=== PATIENT | female | born 1975 | race Two or more races ===

== ENCOUNTER 2018-02-25 12:26 | Emergency (ER) | payer BC ==
[2018-02-25 13:37] VITALS: BP 129/86
[2018-02-25] MEDS ORDERED: traMADol TAB* 50 MG PO ONE (14:17)
--- NOTE | 2018-02-25 14:21 | RAD ---
HISTORY: Left foot pain, injury COMPARISONS: None VIEWS: 3, Frontal, lateral, and oblique views of the left foot FINDINGS: BONE DENSITY: Normal. BONES: There is an oblique nondisplaced fracture of the proximal phalanx of the third digit. JOINTS: There is no arthropathy. ALIGNMENT: There is no dislocation. SOFT TISSUES: Unremarkable. OTHER FINDINGS: None. IMPRESSION: OBLIQUE NONDISPLACED FRACTURE OF THE PROXIMAL PHALANX OF THE THIRD DIGIT.
--- NOTE | 2018-02-25 15:38 | UC ---
Lower Extremity/Ankle HPI - HPI Summary HPI Summary: Patient is a 42-year-old female presenting to the with chief complaint of left middle toe pain and ecchymosis after jamming the toe earlier this morning. She endorses difficulty ambulating well. Denies any numbness or tingling. Denies any temperature changes to the area. Denies any other injuries. She has not taken any ibuprofen or Tylenol [employer]. - History of Current Complaint Chief Complaint: UCLowerExtremity Stated Complaint: FOOT INJURY Time Seen by Provider: 02/25/18 13:49 Hx Obtained From: Patient Hx Last Menstrual Period: states does not get period due to bc pill ?: No Onset/Duration: Sudden Onset Severity Initially: Mild Severity Currently: Mild Pain Intensity: 0 Pain Scale Used: 0-10 Numeric Aggravating Factor(s): Standing, Ambulation Alleviating Factor(s): Rest Able to Bear Weight: No - Risk Factors Gout Risk Factors: Negative DVT Risk Factors: Negative Septic Arthritis Risk Factor: Negative - Allergies/Home Medications Allergies/Adverse Reactions: Allergies Allergy/AdvReac Type Severity Reaction Status Date / Time No Known Allergies Allergy Verified 02/25/18 13:31 PMH/Surg Hx/FS Hx/Imm Hx Previously Healthy: Yes - Surgical History Surgical History: None - Social History Occupation: Employed Full-time Lives: With Family Alcohol Use: Rare Substance Use Type: None Smoking Status (MU): Never Smoked Tobacco Review of Systems Constitutional: Negative Skin: Negative Respiratory: Negative Cardiovascular: Negative Motor: Negative Neurovascular: Negative Musculoskeletal: Arthralgia Neurological: Negative Is Patient Immunocompromised?: No All Other Systems Reviewed And Are Negative: Yes Physical Exam Triage Information Reviewed: Yes Appearance: Well-Appearing, No Pain Distress, Well-Nourished Vital Signs: Initial Vital Signs Temp 99.2 F 02/25/18 13:32 Pulse 77 02/25/18 13:32 Resp 18 02/25/18 13:32 BP 129/86 02/25/18 13:32 Pulse Ox 98 02/25/18 13:32 Vital Signs Reviewed: Yes Eye Exam: Normal Eyes: Positive: Conjunctiva Clear Neck exam: Normal Neck: Positive: Supple Respiratory: Positive: Chest non-tender, Lungs clear Musculoskeletal Exam: Normal Musculoskeletal: Positive: Strength Intact Psychological Exam: Normal Psychological: Positive: Normal Response To Family Skin Exam: Normal Skin: Positive: Other - eccymosis over the third digit Lower Extremity Course/Dx - Course Course Of Treatment: During the course treatment, the patient's evaluated for left middle toe pain. There is ecchymosis to the base of the third metatarsal with slight swelling. Difficulty with ambulation per patient. X-ray obtained which shows oblique nondisplaced fracture of the proximal phalanx of the third digit. She is unable to ambulate. Baudilio taped toes and [place] applied crutches given. She will follow-up with the orthopedic clinic next week. - Differential Dx/Diagnosis Provider Diagnoses: Toe fracture Discharge - Sign-Out/Discharge Documenting (check all that apply): Discharge/Admit/Transfer - Discharge Plan Condition: Stable Disposition: HOME Patient Education Materials: Toe Fracture (ED) Referrals: Stu Church MD [Primary Care Provider] - Additional Instructions: Take 600mg ibuprofen three times daily for discomfort Follow up with the orthopedic clinic Call today for appt Keep camboot applied Crutches as needed - Billing Disposition and Condition Condition: STABLE Disposition: HOME
== END 2018-02-25 14:45 | disposition home or self-care (01) ==
LOC: UCEAST 12:26
DX: S92.912A Unspecified fracture of left toe(s), initial encounter for closed fracture (principal); W23.0XXA Caught, crushed, jammed, or pinched between moving objects, initial encounter; Y92.9 Unspecified place or not applicable
CPT/HCPCS: 99213; G0463

== ENCOUNTER 2021-01-09 10:51 | Observation (INO) ==
[2021-01-09] MEDS ORDERED: Clindamycin 900 MG/D5W BAG IVPB ONE (11:00)
[2021-01-09 11:34] LABS: ABS Eosinophils 0.1 10^3/ul (0-0.6); ABS Lymphocytes 2.1 10^3/ul (1.0-4.8); ABS Monocytes 0.4 10^3/ul (0-0.8); ABS Neutrophils 3.3 10^3/ul (1.5-7.7); Eosinophil % 1.3 %; Hematocrit 37 % (35-47); Hemoglobin 11.9 g/dL (12.0-16.0); Lymphocyte % 36.3 %; Mean Corpuscular HGB Conc 33 g/dL (31-36); Mean Corpuscular Hemoglobin 25 pg (27-31); Mean Corpuscular Volume 77 fL (80-97); Mean Platelet Volume 8.8 fL (7.4-10.4); Platelet Count 307 10^3/uL (150-450); Red Blood Count 4.72 10^6 /uL (3.70-4.87); Red Cell Distribution Width 16 % (10-15); White Blood Count 5.9 10^3/uL (3.5-10.8)
[2021-01-09 11:41] LABS: Activated Partial Thrombo Time 32.8 seconds (26.0-38.0); INR 1.03 (0.82-1.09)
[2021-01-09] MEDS ORDERED: Ondansetron 4 mg VIAL 2 MG/ML 2 ml VIAL ONE (12:43)
[2021-01-09] MEDS ORDERED: oxyCODONE SR 10 mg TAB ONE (12:43)
[2021-01-09] MEDS ORDERED: Lidocaine 1% VIAL 10 MG/ML VIAL ONE (12:55)
[2021-01-09] MEDS ORDERED: Iodixanol 320 (CONTRAST) 100 ML SDV ONE (12:56)
[2021-01-09] MEDS ORDERED: Heparin 2 UNITS/ML IVPREMIX 3,000 UNIT/1,500 ML BAG IV ONE (12:56)
[2021-01-09] MEDS ORDERED: Iohexol 350 (CONTRAST) 200 ML MDV IV ONE (13:01)
[2021-01-09] MEDS ORDERED: Heparin 2 UNITS/ML IVPREMIX 1,000 UNIT/500 ML BAG IV ONE ×2 (13:01→14:33)
[2021-01-09] MEDS ORDERED: fentaNYL 100 mcg/2 ml 50 MCG/ML VIAL ONE ×2 (13:12→14:20)
[2021-01-09] MEDS ORDERED: nitroGLYCERIN DRIP 25,000 MCG/250 ML BTL ONE (13:12)
[2021-01-09] MEDS ORDERED: Midazolam 5 mg/5 ml VIAL 1 mg/ml 5 ml VIAL (5 mg) ONE (13:12)
[2021-01-09] MEDS ORDERED: HYDROmorphone PCA 1 MG/ML Titrat per Protocol PCA SCH (14:00)
[2021-01-09] MEDS ORDERED: Atropine 0.1 MG/ML 10 ml SYR (1 mg) ONE (14:04)
[2021-01-09] MEDS ORDERED: methylPREDNISolone 125 mg 2 ML VIAL ONE (14:07)
[2021-01-09] MEDS ORDERED: diPHENhydraMINE IV 50 MG/ML 1 ml VIAL (BENADRYL) ONE (14:07)
[2021-01-09] MEDS ORDERED: LORazepam 2 mg VIAL 1 ml ONE (15:06)
[2021-01-09] MEDS ORDERED: Lorazepam PYXIS KEY ONE (15:06)
[2021-01-09 15:15] LABS: ABS Lymphocytes 2.6 10^3/ul (1.0-4.8); ABS Neutrophils 1.8 10^3/ul (1.5-7.7); Eosinophil % 0.4 %; Hematocrit 37 % (35-47); Lymphocyte % 58.1 %; Mean Corpuscular HGB Conc 32 g/dL (31-36); Mean Corpuscular Hemoglobin 25 pg (27-31); Mean Corpuscular Volume 79 fL (80-97); Mean Platelet Volume 9.1 fL (7.4-10.4); Nucleated Red Blood Cells % 0.1; Platelet Count 266 10^3/uL (150-450); Red Blood Count 4.74 10^6 /uL (3.70-4.87); Red Cell Distribution Width 17 % (10-15); White Blood Count 4.5 10^3/uL (3.5-10.8)
[2021-01-09 15:50] LABS: Albumin 3.6 g/dL (3.2-5.2); Albumin/Globulin Ratio 1.8 (1-3); BUN/Creatinine Ratio 16.7 (8-20); Calcium 8.1 mg/dL (8.6-10.3); EGFR African American 167.7 (>60); EGFR Non-African American 138.6 (>60); Potassium 3.2 mmol/L (3.5-5.0); Total Bilirubin 0.3 mg/dL (0.2-1.0); Total Protein 5.6 g/dL (6.4-8.9)
[2021-01-09] MEDS ORDERED: Lorazepam PYXIS KEY PRN (15:59)
[2021-01-09] MEDS ORDERED: LORazepam 2 mg VIAL 1 ml IV PUSH ONE (16:00)
[2021-01-09] MEDS ORDERED: oxyCODONE/Acetamin 5/325 mg TAB PO PRN (16:25)
[2021-01-09] MEDS: KCL 20 MEQ/100 ML IVPREMIX 20 MEQ/100 ML BAG IV SCH ×2 (18:00→23:57)
[2021-01-09] MEDS ORDERED: Ondansetron 4 mg VIAL 2 MG/ML 2 ml VIAL IV SCH (18:30)
[2021-01-09] MEDS ORDERED: Ondansetron 4 mg VIAL 2 MG/ML 2 ml VIAL IV PRN (18:54)
[2021-01-09] MEDS ORDERED: Potassium Chlor 20 meq TAB.ER PO ONE (21:00)
[2021-01-10 04:42] LABS: ABS Lymphocytes 1.5 10^3/ul (1.0-4.8); ABS Monocytes 0.5 10^3/ul (0-0.8); ABS Neutrophils 8.2 10^3/ul (1.5-7.7); Eosinophil % 0.4 %; Hematocrit 33 % (35-47); Hemoglobin 10.6 g/dL (12.0-16.0); Lymphocyte % 14.9 %; Mean Corpuscular HGB Conc 32 g/dL (31-36); Mean Corpuscular Hemoglobin 25 pg (27-31); Mean Corpuscular Volume 79 fL (80-97); Mean Platelet Volume 8.5 fL (7.4-10.4); Platelet Count 258 10^3/uL (150-450); Red Cell Distribution Width 17 % (10-15); White Blood Count 10.3 10^3/uL (3.5-10.8)
[2021-01-10 04:57] LABS: EGFR African American 185.5 (>60); EGFR Non-African American 153.3 (>60); Potassium 3.8 mmol/L (3.5-5.0)
[2021-01-10 11:16] VITALS: BP 127/80
== END 2021-01-10 11:41 | disposition home or self-care (01) ==
LOC: CHICATH 10:51 → ICU 14:45 → INTOOBSV 14:45
PROVIDERS: ADMIT Surgery Surgical Critical Care; ATTEND Surgery Surgical Critical Care
PROC: ANG.UFE (2021-01-09 12:10)

== ENCOUNTER 2021-03-20 10:50 | Observation (INO) ==
[2021-03-20] MEDS ORDERED: Clindamycin 900 MG/D5W BAG IVPB ONE (11:00)
[2021-03-20] MEDS ORDERED: oxyCODONE SR 10 mg TAB ONE (11:35)
[2021-03-20] MEDS ORDERED: Ondansetron 4 mg VIAL 2 MG/ML 2 ml VIAL ONE (11:36)
[2021-03-20] MEDS ORDERED: diPHENhydraMINE 25 mg TAB ONE (11:36)
[2021-03-20 11:49] LABS: Activated Partial Thrombo Time 26.4 seconds (26.0-38.0); INR 1.05 (0.82-1.09)
[2021-03-20 11:54] LABS: Anion Gap 11 mmol/L (2-11); Blood Urea Nitrogen 11 mg/dL (6-24); CO2 Carbon Dioxide 22 mmol/L (22-32); Calcium 9.1 mg/dL (8.6-10.3); Chloride 103 mmol/L (101-111); EGFR African American 167.7 (>60); EGFR Non-African American 138.6 (>60); Glucose 157 mg/dL (70-100); Potassium 3.6 mmol/L (3.5-5.0); Sodium 136 mmol/L (135-145)
[2021-03-20] MEDS ORDERED: Lidocaine 1% VIAL 10 MG/ML VIAL ONE (11:57)
[2021-03-20] MEDS ORDERED: Heparin 2 UNITS/ML IVPREMIX 3,000 UNIT/1,500 ML BAG IV ONE (11:58)
[2021-03-20] MEDS ORDERED: Iohexol 350 (CONTRAST) 200 ML MDV IV ONE (11:58)
[2021-03-20 12:01] LABS: HCG Pregnancy < 0.60 mIU/mL
[2021-03-20] MEDS ORDERED: nitroGLYCERIN DRIP 25,000 MCG/250 ML BTL ONE (12:16)
[2021-03-20] MEDS ORDERED: Midazolam 5 mg/5 ml VIAL 1 mg/ml 5 ml VIAL (5 mg) ONE (12:16)
[2021-03-20] MEDS ORDERED: fentaNYL 250 mcg/5 ml 50 MCG/ML 5 ml VIAL (250 MCG) ONE (12:16)
[2021-03-20 12:33] LABS: Hematocrit 23 % (35-47); Hemoglobin 6.9 g/dL (12.0-16.0); Mean Corpuscular HGB Conc 30 g/dL (31-36); Mean Corpuscular Hemoglobin 19 pg (27-31); Mean Corpuscular Volume 63 fL (80-97); Mean Platelet Volume 8.6 fL (7.4-10.4); Platelet Count 372 10^3/uL (150-450); Red Blood Count 3.66 10^6 /uL (3.70-4.87); Red Cell Distribution Width 18 % (10-15); White Blood Count 7.1 10^3/uL (3.5-10.8)
[2021-03-20] MEDS ORDERED: Naloxone 0.4 mg VIAL 0.4 mg/ml 1 ml VIAL IV PUSH PRN (13:00)
[2021-03-20] MEDS ORDERED: HYDROmorphone PCA 20 MG/20 ML PCA.SYRING PCA SCH (13:00)
[2021-03-20 13:24] LABS: ABS Lymphocytes 1.3 10^3/ul (1.0-4.8); ABS Monocytes 0.1 10^3/ul (0-0.8); ABS Neutrophils 5.8 10^3/ul (1.5-7.7); Lymphocyte % 18.2 %
[2021-03-20] MEDS ORDERED: HYDROmorphone 1 MG/1 ML SYRINGE ONE ×2 (13:26→13:53)
[2021-03-20 18:20] LABS: Hematocrit 23 % (35-47)
[2021-03-20] MEDS: NS 0.9% 1000 ml BAG 1,000 ML IV SCH (19:30)
[2021-03-20] MEDS: Ondansetron 4 mg VIAL 2 MG/ML 2 ml VIAL IV SCH (19:51)
[2021-03-20] MEDS: Mometasone/Formoter 100/5 MDI INH SCH (20:39)
[2021-03-21] MEDS: NS 0.9% 1000 ml BAG 1,000 ML IV SCH ×2 (01:01→06:09)
[2021-03-21] MEDS: Ondansetron 4 mg VIAL 2 MG/ML 2 ml VIAL IV SCH ×2 (01:02→08:21)
[2021-03-21 05:51] LABS: ABS Basophils 0.1 10^3/ul (0-0.2); ABS Lymphocytes 2.5 10^3/ul (1.0-4.8); ABS Monocytes 0.9 10^3/ul (0-0.8); Eosinophil % 0.1 %; Hematocrit 23 % (35-47); Hemoglobin 6.7 g/dL (12.0-16.0); Lymphocyte % 14.3 %; Mean Corpuscular HGB Conc 29 g/dL (31-36); Mean Corpuscular Hemoglobin 18 pg (27-31); Mean Corpuscular Volume 64 fL (80-97); Mean Platelet Volume 7.9 fL (7.4-10.4); Platelet Count 382 10^3/uL (150-450); Red Blood Count 3.65 10^6 /uL (3.70-4.87); Red Cell Distribution Width 18 % (10-15); White Blood Count 17.5 10^3/uL (3.5-10.8)
[2021-03-21] MEDS ORDERED: HYDROcodone/ACETAMIN 5/325 mg TAB PO PRN (08:06)
[2021-03-21] MEDS: Mometasone/Formoter 100/5 MDI INH SCH (08:24)
[2021-03-21] MEDS ORDERED: Cholecalciferol (VIT D3) 1,000 unit TAB PO SCH (09:00)
[2021-03-21 11:42] VITALS: BP 133/84
[2021-03-21] MEDS ORDERED: Ketorolac 10 mg TAB (NF) PO SCH (14:00)
== END 2021-03-21 14:40 | disposition home or self-care (01) ==
LOC: SSU 10:50 → CHICATH 10:50
PROVIDERS: ADMIT Internal Medicine; ATTEND Internal Medicine
PROC: ANG.UFE (2021-03-20 12:10)